=== PATIENT | female | born 1980 | race Hispanic/Latino ===

== ENCOUNTER 2017-06-28 14:22 | Inpatient (IN) | payer BC ==
[2017-06-28 15:10] VITALS: BMI 30.9
[2017-06-28] MEDS ORDERED: Sodium Chloride 0.9% 1,000 ML IV STA ×3 (15:18→22:09)
[2017-06-28] MEDS ORDERED: Morphine 2 mg/ml ISec IVP STA (15:21)
[2017-06-28] MEDS ORDERED: Morphine 4 mg/ml ISec IVP STA ×2 (15:23→18:41)
--- NOTE | 2017-06-28 15:56 | ED PDOC ---
Arrival/HPI - General Chief Complaint: Weakness/Neurological Deficit Time Seen by Provider: 06/28/17 15:01 Historian: Patient - History of Present Illness Narrative History of Present Illness (Text): 06/28/17 15:15 A 37 year old female, whose past medical history includes Mosaic Luong's syndrome, anxiety (takes Zoloft), appendectomy, presents to the emergency department complaining of weakness and near syncope prior to arrival. She states she felt she felt like she was going to pass out and then started feeling right lower abdominal pain. The abdominal pain is worsening and localized to the right lower and mid pelvic area. Some nausea and vomiting. No diarrhea. No vaginal bleeding or discharge. No urinary symptoms. She also noticed that she had a rash all over her body. She denied any itchiness. Patient states never having this experience before. Recently she stopped taking her Zoloft without being instructed to stop using it. She's been under a lot of stress so she thought maybe this was because of her life stressors. She notes also experiencing on and off palpitations and shortness of breath. She denies any chest pain, or any other complaints at this time. PMD: [facility] Past Medical History - Provider Review Nursing Documentation Reviewed: Yes - Infectious Disease Hx of Infectious Diseases: None - Cardiac Hx Cardiac Disorders: No - Pulmonary Hx Respiratory Disorders: No - Neurological Hx Neurological Disorder: No - HEENT Hx HEENT Disorder: No - Renal Hx Renal Disorder: No - Endocrine/Metabolic Hx Endocrine Disorders: No - Hematological/Oncological Hx Blood Disorders: No - Integumentary Hx Dermatological Disorder: No - Musculoskeletal/Rheumatological Hx Musculoskeletal Disorders: No - Gastrointestinal Hx Gastrointestinal Disorders: No - Genitourinary/Gynecological Hx Genitourinary Disorders: No - Psychiatric Hx Psychophysiologic Disorder: Yes Hx Anxiety: Yes Hx Post Traumatic Stress Disorder: Yes Hx Substance Use: No Family/Social History - Physician Review Nursing Documentation Reviewed: Yes Family/Social History: No Known Family HX Smoking Status: Never Smoked Hx Alcohol Use: No Hx Substance Use: No Allergies/Home Meds Allergies/Adverse Reactions: Allergies No Known Allergies Allergy (Verified 06/28/17 15:11) Home Medications: Home Meds Medication Instructions Recorded Confirmed Sertraline [Zoloft] 100 mg PO DAILY 06/28/17 06/28/17 Review of Systems - Physician Review All systems were reviewed & negative as marked: Yes - Review of Systems Constitutional: Other (weakness) Eyes: Vision Changes (prior to arrival in ER) Respiratory: SOB Cardiovascular: Palpitations. absent: Chest Pain Gastrointestinal: Abdominal Pain (right lower abdomen), Nausea, Vomiting Genitourinary Female: absent: Dysuria, Vaginal Bleeding Skin: Other (full body redness) Neurological: Other (lightheadedness) Physical Exam Vital Signs Reviewed: Yes Vital Signs Temp Pulse Resp BP Pulse Ox 06/29/17 00:07 98.2 F 80 17 112/81 100 06/28/17 22:15 74 18 112/79 98 06/28/17 20:45 78 17 118/72 100 06/28/17 17:55 77 16 104/73 99 06/28/17 15:11 97.5 F L 06/28/17 14:44 97.2 F L 86 18 116/66 97 Temperature: Afebrile Blood Pressure: Normal Pulse: Regular Respiratory Rate: Normal Appearance: Positive for: Well-Appearing, Non-Toxic, Comfortable Pain Distress: None Mental Status: Positive for: Alert and Oriented X 3 - Systems Exam Head: Present: Atraumatic, Normocephalic Pupils: Present: PERRL Extroacular Muscles: Present: EOMI Conjunctiva: Present: Normal Mouth: Present: Moist Mucous Membranes Neck: Present: Normal Range of Motion Respiratory/Chest: Present: Clear to Auscultation, Good Air Exchange. No: Respiratory Distress, Accessory Muscle Use Cardiovascular: Present: Regular Rate and Rhythm, Normal S1, S2. No: Murmurs Abdomen: Present: Tenderness (RLQ tenderness with guarding), Normal Bowel Sounds , Rebound, Guarding. 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 No: Cervical Motion Tendernes, Odor Back: Present: Normal Inspection. No: CVA Tenderness Upper Extremity: Present: Normal Inspection. No: Cyanosis, Edema Lower Extremity: Present: Normal Inspection. No: Edema Neurological: Present: GCS=15, CN II-XII Intact, Speech Normal Skin: Present: Erythematous (upper torso and face appeared flushed) Psychiatric: Present: Alert, Oriented x 3, Normal Insight, Normal Concentration Medical Decision Making ED Course and Treatment: 06/28/17 15:19 Impression: 37 year old female with near syncope, abdominal pain, n/v, body flushing, and intermittent dizziness/lightheadedness Differential Diagnosis included but are not limited to: Ovarian Torsion vs Hemorrhagic Cyst vs Colitis; Near Syncope r/o Dehydration vs Hypovolemia from Abdominal Pathology vs Cardiac Arrythmia vs Cardiac abnormalities from Mosaic Luong's Syncope Plan: -- EKG -- Abd/Pelvis CT -- Labs -- Venous Blood Gas -- Morphine -- Zofran -- IV Fluids -- Transvaginal Ultrasound -- Urinalysis -- Reassess and disposition Progress Notes: 06/28/2017 17:10 Chest X-ray IMPRESSION: No active disease. Dictator: Kishore Navarro MD 06/28/2017 17:51 Transvaginal Ultrasound FINDINGS: UTERUS: Measures 4 x 4.2 x 6.9 cm. Normal in size and appearance. Midline exophytic fibroid 1.6 x 1.6 x 1.7 cm. Posterior midline fibroid 2 x 2 x 2.1 cm. Submucosal posterior fibroid 7 x 7 x 9 mm. ENDOMETRIUM: Measures 7.0 mm in diameter. No ultrasound findings to suggest gestational sac, fluid, debris, mass or polyp or other pathologic process within the endometrium. CERVIX: No cervical abnormality identified. RIGHT OVARY: Measures 1.6 x 1.5 x 3 cm. No solid mass. Normal flow. LEFT OVARY: Measures 1.8 x 2.7 x 2.8 cm. No solid mass. Normal flow. Dominant follicle/cyst 1.8 x 1.4 x 1.6 cm. Multiple subcentimeter follicles. FREE FLUID: No significant free fluid noted. OTHER FINDINGS: None. IMPRESSION: Myomatous uterus. Three separate and distinct fibroids identified. Simple cyst left adnexa. Additional benign and/or incidental findings described above. Dictator: Kishore Navarro MD 06/28/17 21:52 Upon reevaluation, abdomen has RLQ tender. Body rash has resolved. CT and US results have been reviewed with patient. Case discussed with Dr. Araiza and patient to be admitted for near-syncope and leukocytosis. Antibiotics already given. Consult with Dr. Del Real neuro, Dr. Lipscomb for ID, Dr. Crissy Durant for [employer]GL[employer] ATT[employer], and Dr. Javed for cardiology. 06/28/17 22:16 EKG NSR at 73bpm. Patient had dizziness and lightheadedness at rest. Fluids given and patient improved. - Lab Interpretations Lab Results: 06/28/17 15:50 06/28/17 17:20 Lab Results 06/28/17 20:25: pO2 78 H, VBG pH 7.35, VBG pCO2 45.0, VBG HCO3 24.8, VBG Total CO2 26.2, VBG O2 Sat (Calc) 97.1 H, VBG Base Excess -1.1 L, VBG Potassium 4.1, Sodium 137.0, Chloride 107.0, Glucose 91, Lactate 0.9, FiO2 21.0, Venous Blood Potassium 4.1 06/28/17 17:20: TSH 3rd Generation 2.24 06/28/17 17:20: Sodium 144, Chloride 108 H, Potassium 4.5, Carbon Dioxide 25, Anion Gap 15, BUN 8, Creatinine 0.7, Est GFR ( Amer) > 60, Est GFR (Non- Af Amer) > 60, Random Glucose 88, Calcium 8.9, Magnesium 1.4 L, Total Bilirubin 0.4, AST 20, ALT 25, Alkaline Phosphatase 72, Lactate Dehydrogenase 355, Total Creatine Kinase 30 L, Troponin I 0.02, Total Protein 7.4, Albumin 4.0, Globulin 3.4, Albumin/Globulin Ratio 1.2, Lipase 31 06/28/17 16:24: Urine Color Dark yellow, Urine Appearance Slight-cloudy, Urine pH 6.0, Ur Specific [place] >= 1.030, Urine Protein >=300 H, Urine Glucose (UA) Negative, Urine Ketones 15 H, Urine Blood Negative, Urine Nitrate Negative, Urine Bilirubin Small H, Urine Urobilinogen 0.2, Ur Leukocyte Esterase Negative , Urine RBC 0 - 2, Urine WBC 0 - 2, Ur Epithelial Cells 4 - 5, Urine Bacteria Small, Hyaline Casts 0 - 2 06/28/17 15:50: pO2 109 H, VBG pH 7.36, VBG pCO2 47.0, VBG HCO3 26.6, VBG Total CO2 28.0, VBG O2 Sat (Calc) 99.1 H, VBG Base Excess 0.6, VBG Potassium 7.0 H*, Sodium 134.0, Chloride 104.0, Glucose 120 H, Lactate 2.2 H, FiO2 21.0, Venous Blood Potassium 7.0 H* 06/28/17 15:50: PT 12.7 H, INR 1.11 H, APTT 25.9 06/28/17 15:50: WBC 19.3 H, RBC 4.93, Hgb 13.6, Hct 40.5, MCV 82.2, MCH 27.6, MCHC 33.6, RDW 14.3, Plt Count 402, MPV 10.2, Gran % 84.3 H, Lymph % (Auto) 9.7 L, [place] % (Auto) 5.0, Eos % (Auto) 0.9 L, Baso % (Auto) 0.1, Gran # 16.24 H, Lymph # (Auto) 1.9, [place] # (Auto) 1.0 H, Eos # (Auto) 0.2, Baso # (Auto) 0.02 I have reviewed the lab results: Yes - RAD Interpretation Radiology Orders: 06/28/17 15:19 TRANSVAGINAL [US] Stat 06/28/17 16:32 CXR [CHEST PORTABLE] [RAD] Stat 06/28/17 18:11 ABD & PELVIS IV CONTRAST ONLY [CT] Stat - Medication Orders Current Medication Orders: Acetaminophen (Tylenol 325mg Tab) 650 mg PO Q4H PRN PRN Reason: Fever >100.5 F Discontinued Medications Sodium Chloride (Sodium Chloride 0.9%) 1,000 mls @ 1,000 mls/hr IV .Q1H STA Stop: 06/28/17 16:17 Last Admin: 06/28/17 16:10 Dose: 1,000 mls/hr eMAR Start Stop Document 06/28/17 16:10 MS (Rec: 06/28/17 16:10 MS [id number]) Intravenous Solution Start Date 06/28/17 Start Time 16:10 End Date 06/28/17 End time 17:10 Total Infusion Time 60 Sodium Chloride (Sodium Chloride 0.9%) 1,000 mls @ 999 mls/hr IV .Q1H1M STA Stop: 06/28/17 18:53 Last Admin: 06/28/17 18:28 Dose: 999 mls/hr eMAR Start Stop Document 06/28/17 18:28 MS (Rec: 06/28/17 18:28 MS [id number]) Intravenous Solution Start Date 06/28/17 Start Time 17:53 End Date 06/28/17 End time 18:53 Total Infusion Time 60 Piperacillin Sod/Tazobactam Sod (Zosyn 4.5 Gm In Ns 100ml) 4.5 gm in 100 mls @ 200 mls/hr IVPB STAT STA PRN Reason: Protocol Stop: 06/28/17 18:50 Last Admin: 06/28/17 18:40 Dose: 200 mls/hr eMAR Start Stop Document 06/28/17 18:40 MS (Rec: 06/28/17 18:41 MS [id number]) Intravenous Solution Start Date 06/28/17 Start Time 18:41 End Date 06/28/17 End time 19:11 Total Infusion Time 30 Sodium Chloride (Sodium Chloride 0.9%) 1,000 mls @ 999 mls/hr IV .Q1H1M STA Stop: 06/28/17 23:09 Last Admin: 06/28/17 22:09 Dose: 999 mls/hr eMAR Start Stop Document 06/28/17 22:09 IT (Rec: 06/28/17 22:24 IT [id number]) Intravenous Solution Start Date 06/28/17 Start Time 22:24 Morphine Sulfate (Morphine) 2 mg IVP STAT STA Stop: 06/28/17 15:24 Last Admin: 06/28/17 16:05 Dose: 2 mg MAR Pain Assessment Document 06/28/17 16:05 MS (Rec: 06/28/17 16:10 MS [id number]) Pain Reassessment Is this a pain reassessment? No Sleep Is patient sleeping during reassessment? No Presence of Pain Presence of Pain Yes Pain Scale Used Pain Scale Used Numeric Location Pain Location Body Site Abdomen Description Description Constant Intensity of Pain at present 7 IVP Administration Document 06/28/17 16:05 MS (Rec: 06/28/17 16:10 MS [id number]) Charges for Administration # of IVP Administrations 1 Re-Assess: JAMES Pain Assessment Document 06/28/17 17:05 GC (Rec: 06/29/17 00:49 GC [id number]) Pain Reassessment Is this a pain reassessment? Yes Sleep Is patient sleeping during reassessment? Yes Morphine Sulfate (Morphine) 4 mg IVP STAT STA Stop: 06/28/17 18:42 Last Admin: 06/28/17 19:17 Dose: 4 mg MAR Pain Assessment Document 06/28/17 19:17 IT (Rec: 06/28/17 19:18 IT [id number]) Pain Reassessment Is this a pain reassessment? No Sleep Is patient sleeping during reassessment? No Presence of Pain Presence of Pain Yes Pain Scale Used Pain Scale Used Numeric Location Pain Location Body Site Abdomen Description Description Constant Intensity of Pain at present 8 IVP Administration Document 06/28/17 19:17 IT (Rec: 06/28/17 19:18 IT [id number]) Charges for Administration # of IVP Administrations 1 Re-Assess: MAR Pain Assessment Document 06/28/17 20:17 GC (Rec: 06/29/17 00:49 GC [id number]) Pain Reassessment Is this a pain reassessment? Yes Sleep Is patient sleeping during reassessment? Yes Ondansetron HCl (Zofran Inj) 4 mg IVP STAT STA Stop: 06/28/17 15:19 Last Admin: 06/28/17 16:04 Dose: 4 mg IVP Administration Document 06/28/17 16:04 MS (Rec: 06/28/17 16:04 MS [id number]) Charges for Administration # of IVP Administrations 1 - Scribe Statement The provider has reviewed the documentation as recorded by the Scribe Abisai Trevino Provider Scribe Attestation: All medical record entries made by the Scribe were at my direction and personally dictated by me. I have reviewed the chart and agree that the record accurately reflects my personal performance of the history, physical exam, medical decision making, and the department course for this patient. I have also personally directed, reviewed, and agree with the discharge instructions and disposition. Disposition/Present on Arrival - Present on Arrival Any Indicators Present on Arrival: No History of DVT/PE: No History of Uncontrolled Diabetes: No Urinary Catheter: No History of Decub. Ulcer: No History Surgical Site Infection Following: None - Disposition Have Diagnosis and Disposition been Completed?: Yes Diagnosis: Near syncope, Abdominal pain, Leukocytosis Disposition: HOSPITALIZED Disposition Time: 21:29 Patient Plan: Admission Condition: GUARDED
[2017-06-28 16:08] LABS: BASO # 0.02 K/mm3 (0.0-2.0); BASO % 0.1 % (0.0-3.0); EOS # 0.2 (0.0-0.7); EOS % 0.9 % (1.5-5.0); GRAN # 16.24 (1.4-6.5); GRAN % 84.3 % (50.0-68.0); HEMOGLOBIN 13.6 g/dL (12.0-16.0); LYMPH # 1.9 (1.2-3.4); LYMPH % 9.7 % (22.0-35.0); MEAN CELL VOLUME 82.2 fl (80.0-105.0); MEAN CORPUSCULAR HEMOGLOBIN 27.6 pg (25.0-35.0); MEAN CORPUSCULAR HGB CONC 33.6 g/dl (31.0-37.0); MEAN PLATELET VOLUME 10.2 fl (7.0-11.0); RBC 4.93 10^6/uL (3.5-6.1); RED CELL DISTRIBUTION WIDTH 14.3 % (11.5-14.5); VENOUS BLOOD GAS BASE EXCESS 0.6 mmol/L (0.0-2.0); VENOUS BLOOD GAS PO2 109 mm/Hg (30-55); VENOUS BLOOD PH 7.36 (7.32-7.43); WHITE BLOOD COUNT 19.3 10^3/ul (4.5-11.0)
[2017-06-28 16:15] LABS: INR 1.11 (0.93-1.08); PARTIAL THROMBOPLASTIN TIME 25.9 Seconds (25.1-36.5); PROTHROMBIN TIME 12.7 SECONDS (9.4-12.5)
[2017-06-28 16:36] LABS: URINE BILIRUBIN SMALL (NEGATIVE); URINE BLOOD NEGATIVE (NEGATIVE); URINE GLUCOSE (UA) NEGATIVE (NEGATIVE); URINE LEUKOCYTE ESTERASE NEGATIVE Leu/uL (NEGATIVE); URINE PROTEIN >=300 mg/dL (<30 mg/dL); URINE UROBILINOGEN 0.2 E.U./dL (<1 E.U./dL)
[2017-06-28 16:37] LABS: URINE APPEARANCE SLIGHT-CLOUDY (CLEAR); URINE COLOR DARK YELLOW (YELLOW)
[2017-06-28 16:42] LABS: URINE BACTERIA SMALL (NEG); URINE HYALINE CAST 0 - 2 /hpf; URINE RBC 0 - 2 /hpf (0-2); URINE WBC 0 - 2 /hpf (0-6)
--- NOTE | 2017-06-28 17:12 | RAD ---
HISTORY: Syncope. Abdominal pain, vomiting and nausea. COMPARISON: No prior. FINDINGS: LUNGS: No active pulmonary disease. PLEURA: No significant pleural effusion identified, no pneumothorax apparent. CARDIOVASCULAR: Normal. OSSEOUS STRUCTURES: No significant abnormalities. VISUALIZED UPPER ABDOMEN: Normal. OTHER FINDINGS: None. IMPRESSION: No active disease.
[2017-06-28 17:42] LABS: ALB/GLOB RATIO 1.2 (1.1-1.8); ALT/SGPT 25 U/L (7-56); AST/SGOT 20 U/L (14-36); BLOOD UREA NITROGEN 8 mg/dL (7-21); CALCIUM 8.9 mg/dL (8.4-10.5); GFR AFRICAN-AMERICAN > 60; GFR NON-AFRICAN AMERICAN > 60; LIPASE 31 U/L (23-300)
[2017-06-28 17:52] LABS: TROPONIN I 0.02 ng/mL
--- NOTE | 2017-06-28 17:52 | US ---
HISTORY: Right lower quadrant abdominal pain. Menstrual status: LMP 06/13/2017. Regular cycles. COMPARISON: None available. TECHNIQUE: Transvaginal only. Real -time technique with 2D, duplex and color Doppler FINDINGS: UTERUS: Measures 4 x 4.2 x 6.9 cm. Normal in size and appearance. Midline exophytic fibroid 1.6 x 1.6 x 1.7 cm. Posterior midline fibroid 2 x 2 x 2.1 cm. Submucosal posterior fibroid 7 x 7 x 9 mm. ENDOMETRIUM: Measures 7.0 mm in diameter. No ultrasound findings to suggest gestational sac, fluid, debris, mass or polyp or other pathologic process within the endometrium. CERVIX: No cervical abnormality identified. RIGHT OVARY: Measures 1.6 x 1.5 x 3 cm. No solid mass. Normal flow. LEFT OVARY: Measures 1.8 x 2.7 x 2.8 cm. No solid mass. Normal flow. Dominant follicle/cyst 1.8 x 1.4 x 1.6 cm. Multiple subcentimeter follicles. FREE FLUID: No significant free fluid noted. OTHER FINDINGS: None. IMPRESSION: Myomatous uterus. Three separate and distinct fibroids identified. Simple cyst left adnexa. Additional benign and/or incidental findings described above.
[2017-06-28] MEDS ORDERED: Piperacill/Tazo 4.5gm in NS 4.5 GM/100 ML BAG IVPB STA (18:21)
[2017-06-28] MEDS ORDERED: Iohexol 350 MG/100 ML VIAL ONE (18:41)
[2017-06-28 20:38] LABS: VENOUS BLOOD GAS BASE EXCESS -1.1 mmol/L (0.0-2.0); VENOUS BLOOD GAS PO2 78 mm/Hg (30-55); VENOUS BLOOD PH 7.35 (7.32-7.43)
--- NOTE | 2017-06-28 20:44 | CT ---
EXAM: CT Abdomen and Pelvis With Intravenous Contrast EXAM DATE/TIME: 06/28/2017 6:11 PM CLINICAL HISTORY: The patient age is 37 years old and is female; Pain and signs and symptoms; Nausea and vomiting; Abdominal pain; Localized; Lower; Additional info: Abd pain Facility exam id and description: Ct abdpelciv abd pelvis iv contrast only TECHNIQUE: Axial computed tomography images of the abdomen and pelvis with intravenous contrast. All CT scans at this facility use one or more dose reduction techniques, viz.: automated exposure control; ma/kV adjustment per patient size (including targeted exams where dose is matched to indication; i.e. head); or iterative reconstruction technique. Coronal and sagittal reformatted images were created and reviewed. CONTRAST: 100 mL of OMNI 350 administered intravenously. COMPARISON: US - TRANSVAGINAL 2017-06-28 16:26 FINDINGS: Lung bases: Dependent atelectatic change is identified at the lung bases posteriorly. ABDOMEN: Liver: No mass. Gallbladder and bile ducts: No calcified stones. No ductal dilation. Pancreas: Normal contour, without acute peripancreatic stranding. Spleen: No splenomegaly. Adrenals: No mass. Kidneys and ureters: No hydronephrosis. No solid mass. Stomach and bowel: A few surgical clips are identified adjacent to the cecum. No obstruction. Evaluation of bowel is limited by the absence of oral contrast. PELVIS: Appendix: The appendix is not visualized. Bladder: No mass. Reproductive: Multiple uterine fibroids are identified. One of the larger fibroid is intramural in position within the posterior wall of the uterus measuring 2.0 x 1.8 x 2.2 cm. There is a hypodense probable left ovarian cyst measuring 1.8 x 1.6 cm. ABDOMEN and PELVIS: Intraperitoneal space: No free air. Bones/joints: No acute fracture. Soft tissues: There is minimal herniation of fat within the umbilicus. Vasculature: No abdominal aortic aneurysm. Lymph nodes: Enlarged iliac chain lymph nodes are identified bilaterally. On the left side, this measures 1.2 x 1.0 cm. These lymph nodes are nonspecific as to etiology. There is no significant retroperitoneal lymphadenopathy. IMPRESSION: 1. Multiple uterine fibroids are identified. 2. There is a hypodense probable left ovarian cyst measuring 1.8 x 1.6 cm. 3. Enlarged iliac chain lymph nodes are identified bilaterally, nonspecific as to etiology. 4. Incidental/non-acute findings are described above.
--- NOTE | 2017-06-29 07:54 | CP.PCM.CON ---
History of Present Illness - History of Present Illness History of Present Illness: PGY2 Neuro Consult Note for Dr. Del Real Reason for consult: near syncope 37yo female PMHx Luong's syndrome presents to the ED the day earlier for a near syncopal episode. Patient reports she has been going through some life stressors and was crying all day and in the evening she felt a tingling sensation throughout her body and was sweating. She states she felt like she might have been having a panic attack. Patient also reported abdominal pain which she believes is associated with her having taken Claritin- she states every time she has a cramping lower abdominal pain she knows she has to have a BM and it improves after. She denied0 any constipation/diarrhea. Patient was having this abdominal pain R> L at the time of her near syncopal episode. She had one episode of nonbloody nonbilious emesis. She also noted she was flushed and felt like her body was red but denied any pruritus or scaling of her skin. She denied any headache, dizziness, chest pain, palpitations, SOB, cough, vaginal bleeding, vaginal discharge, pain/swelling in her legs bilaterally. She reports she feels much better this AM and is eager to be discharged home. 12 point ROS obtained and negative, except as per HPI. 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 Review of Systems - Review of Systems All systems: reviewed and no additional remarkable complaints except Review of Systems: as per HPI Past Patient History - Infectious Disease Hx of Infectious Diseases: None - Past Social History Smoking Status: Never Smoked - CARDIAC Hx Cardiac Disorders: No - PULMONARY Hx Respiratory Disorders: No - NEUROLOGICAL Hx Neurological Disorder: No - HEENT Hx HEENT Problems: No - RENAL Hx Chronic Kidney Disease: No - ENDOCRINE/METABOLIC Hx Endocrine Disorders: No - HEMATOLOGICAL/ONCOLOGICAL Hx Blood Disorders: No - INTEGUMENTARY Hx Dermatological Problems: No - MUSCULOSKELETAL/RHEUMATOLOGICAL Hx Musculoskeletal Disorders: No - GASTROINTESTINAL Hx Gastrointestinal Disorders: No - GENITOURINARY/GYNECOLOGICAL Hx Genitourinary Disorders: No - PSYCHIATRIC Hx Psychophysiologic Disorder: Yes Hx Anxiety: Yes Hx Post Traumatic Stress Disorder: Yes Hx Substance Use: No - SURGICAL HISTORY Hx Surgeries: No Meds Allergies/Adverse Reactions: Allergies Allergy/AdvReac Type Severity Reaction Status Date / Time No Known Allergies Allergy Verified 06/28/17 15:11 - Medications Medications: Current Medications Acetaminophen (Tylenol 325mg Tab) 650 mg PO Q4H PRN PRN Reason: Fever >100.5 F Famotidine (Pepcid) 40 mg PO HS ERICK Hydromorphone HCl (Dilaudid) 0.5 mg IVP Q4H PRN PRN Reason: Pain, Mild (1-3) Ceftriaxone Sodium (Rocephin 1 Gram Ivpb) 1 gm in 100 mls @ 100 mls/hr IVPB DAILY ERICK PRN Reason: Protocol Sodium Chloride (Sodium Chloride 0.9%) 1,000 mls @ 100 mls/hr IV .Q10H ERICK Ondansetron HCl (Zofran Inj) 4 mg IVP Q6 PRN PRN Reason: Nausea/Vomiting Physical Exam - Constitutional Appears: Non-toxic, No Acute Distress - Head Exam Head Exam: ATRAUMATIC, NORMAL INSPECTION, NORMOCEPHALIC - Eye Exam Eye Exam: EOMI, Normal appearance, PERRL. absent: Conjunctival injection, Scleral icterus Pupil Exam: NORMAL ACCOMODATION - ENT Exam ENT Exam: Mucous Membranes Moist - Neck Exam Neck exam: Positive for: Full Rom, Normal Inspection. Negative for: Lymphadenopathy - Respiratory Exam Respiratory Exam: Clear to Auscultation Bilateral, NORMAL BREATHING PATTERN. absent: Accessory Muscle Use, Rales, Rhonchi, Wheezes - Cardiovascular Exam Cardiovascular Exam: REGULAR RHYTHM, +S1, +S2. absent: Bradycardia, Tachycardia - GI/Abdominal Exam GI & Abdominal Exam: Normal Bowel Sounds, Soft, Tenderness (b/l lowe abdomen R > L) - Rectal Exam Rectal Exam: Deferred - Extremities Exam Extremities exam: Positive for: normal capillary refill, normal inspection, pedal pulses present. Negative for: pedal edema - Back Exam Back exam: NORMAL INSPECTION. absent: rash noted - Neurological Exam Neurological exam: Alert, CN II-XII Intact, Oriented x3 - Psychiatric Exam Psychiatric exam: Normal Affect, Normal Mood - Skin Skin Exam: Dry, Intact, Normal Color, Warm Results - Vital Signs Recent Vital Signs: Last Vital Signs Temp 97.6 F 06/29/17 00:27 Pulse 83 06/29/17 06:00 Resp 18 06/29/17 00:27 BP 102/47 L 06/29/17 00:27 Pulse Ox 100 06/29/17 00:07 - Labs Result Diagrams: 06/28/17 15:50 06/28/17 17:20 Assessment & Plan - Assessment and Plan (Free Text) Assessment: 37yo female PMHx Luong's syndrome presents to the ED the day earlier for a near syncopal episode. Plan: -In light of clinical picture and history, patient likely had vasovagal response -carotid u/s reviewed and unremarkable -continue current management as per medical team Neurology will sign off at this time. Please reconsult as necessary. Discussed with Dr. Gt Malave PGY2
[2017-06-29] MEDS: Sodium Chloride 0.9% 1,000 ML IV SCH (09:15)
[2017-06-29] MEDS: cefTRIAXone 1 gm 1 GM/100 ML BAG IVPB SCH (09:35)
--- NOTE | 2017-06-29 10:12 | CARD ---
APPROVED REPORT EKG Measurement Heart [id number] [place] [id number] <Conclusion> Normal sinus rhythm with sinus arrhythmia Possible Left atrial enlargement RVCD NSSTW changes
--- NOTE | 2017-06-29 10:26 | CARD ---
APPROVED REPORT EKG Measurement Heart [id number] <Conclusion> Normal sinus rhythm RVCD NSSTW changes No change
[2017-06-29] MEDS: Magnesium Oxide 400 mg Tab UD PO SCH ×2 (11:28→17:43)
--- NOTE | 2017-06-29 12:35 | US ---
PROCEDURE: Bilateral carotid artery duplex ultrasound HISTORY: Carotid stenosis syncope PHYSICIAN(S): Sandoval Carlos MD. TECHNIQUE: Duplex sonography and color-flow Doppler were used to evaluate the carotid bifurcations and limited segments of the vertebral arteries bilaterally. FINDINGS: There is mild intimal- medial thickening noted at the carotid bifurcations bilaterally. The peak systolic velocity in the proximal right internal carotid artery is 93 cm/sec. This corresponds to a 0-19 percent proximal right ICA stenosis. Normal systolic velocities are noted in the proximal right external carotid artery. There is antegrade flow in the right vertebral artery. The peak systolic velocity in the proximal left internal carotid artery is 95 cm/sec. This corresponds to a 0-19 percent proximal left ICA stenosis. Normal systolic velocities are noted in the proximal left external carotid artery. There is antegrade flow in the left vertebral artery. IMPRESSION: 1. Bilateral 0-19 percent proximal ICA stenoses. 2. Antegrade flow in both vertebral arteries.
--- NOTE | 2017-06-29 12:52 | CP.PCM.CON ---
History of Present Illness - History of Present Illness History of Present Illness: 37 year old female with PMH of mosaic richards's syndrome, anxiety disorder, S/P appendectomy, obesity with BMI 33 came in to [facility] [place] complaining of almost fainting after she had been having nausea and vomiting for about 2 days associated with right sided abdominal pain. She denies diarrhea, no dysuria, no vaginal discharge, no fever or chills, no headache or dizziness, no SOB, no cough or colds, no sore throat. She also developed flushing which disappeared when she got to the ED. CT scan of the abdomen and pelvis was taken which is showing uterine fibroids and a left ovarian cyst. She is also noted to have leukocytosis and Infectious diseases consult is requested to further evaluate and manage. Review of Systems - Review of Systems All systems: reviewed and no additional remarkable complaints except (as per HPI ) Past Patient History - Infectious Disease Hx of Infectious Diseases: None - Past Social History Smoking Status: Never Smoked - CARDIAC Hx Cardiac Disorders: No - PULMONARY Hx Respiratory Disorders: No - NEUROLOGICAL Hx Neurological Disorder: No - HEENT Hx HEENT Problems: No - RENAL Hx Chronic Kidney Disease: No - ENDOCRINE/METABOLIC Hx Endocrine Disorders: No - HEMATOLOGICAL/ONCOLOGICAL Hx Blood Disorders: No - INTEGUMENTARY Hx Dermatological Problems: No - MUSCULOSKELETAL/RHEUMATOLOGICAL Hx Musculoskeletal Disorders: No - GASTROINTESTINAL Hx Gastrointestinal Disorders: No - GENITOURINARY/GYNECOLOGICAL Hx Genitourinary Disorders: No - PSYCHIATRIC Hx Psychophysiologic Disorder: Yes Hx Anxiety: Yes Hx Post Traumatic Stress Disorder: Yes Hx Substance Use: No - SURGICAL HISTORY Hx Surgeries: No Meds Allergies/Adverse Reactions: Allergies Allergy/AdvReac Type Severity Reaction Status Date / Time No Known Allergies Allergy Verified 06/28/17 15:11 - Medications Medications: Current Medications Acetaminophen (Tylenol 325mg Tab) 650 mg PO Q4H PRN PRN Reason: Fever >100.5 F Physical Exam - Constitutional Appears: Non-toxic - Head Exam Head Exam: NORMAL INSPECTION - ENT Exam ENT Exam: Mucous Membranes Moist - Respiratory Exam Respiratory Exam: absent: Rales - Cardiovascular Exam Cardiovascular Exam: +S1, +S2 - GI/Abdominal Exam GI & Abdominal Exam: Soft, Tenderness (on the right lower quadrant). absent: Distended, Firm, Guarding, Rebound, Rigid Results - Vital Signs Recent Vital Signs: Last Vital Signs Temp 97.6 F 06/29/17 00:27 Pulse 83 06/29/17 06:00 Resp 18 06/29/17 00:27 BP 102/47 L 06/29/17 00:27 Pulse Ox 100 06/29/17 00:07 - Labs Result Diagrams: 06/28/17 15:50 06/28/17 17:20 Assessment & Plan - Assessment and Plan (Free Text) Plan: Assessment Systemic inflammatory response syndrome, R/O sepsis from acute gastroenteritis, R/O due to uterine fibroids left ovarian cyst, unknown clinical significance, R/O PID iliac lymphadenopathy, etiology to be determined mosaic richards's syndrome anxiety disorder S/P appendectomy obesity with BMI 33 Plan Started the patient on Rocephin, Flagyl, Doxycycline pending blood, urine cx, urine GC, RPR, HIV test follow up Assembly 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
--- NOTE | 2017-06-29 14:05 | MRI ---
PROCEDURE: Magnetic Resonance Angiography Brain HISTORY: near syncope COMPARISON: None available. TECHNIQUE: 3D time of flight MR angiography of the intracranial arteries was performed. Rotating maximum intensity projection images were generated. FINDINGS: INTERNAL CAROTID ARTERIES: Unremarkable. The skull base, petrous, cavernous and supraclinoid segments are bilaterally widely patient. ANTERIOR CEREBRAL ARTERIES: Unremarkable. A1 and A2 segments are widely patent. Smaller distal branches unremarkable, as visualized. MIDDLE CEREBRAL ARTERIES: Unremarkable. M1 and M2 segments are widely patent. Perisylvian branches grossly symmetric. POSTERIOR CIRCULATION: Basilar Artery: Unremarkable. Distal Vertebral Arteries: Unremarkable. Posterior Cerebral Arteries: Unremarkable. Posterior Inferior Cerebellar Arteries: Unremarkable. ANEURYSM/ VASCULAR MALFORMATIONS: None. OTHER FINDINGS: None. IMPRESSION: Unremarkable MR angiography of the brain.
[2017-06-29] MEDS: metroNIDAZOLE IV 500 mg/100 ml 500 MG/100 ML BAG IVPB SCH ×2 (14:40→21:33)
[2017-06-29 16:57] LABS: RAPID PLASMA REAGIN NONREACTIVE (NONREACTIVE)
[2017-06-29] MEDS: HYDROmorphone 0.5 mg/0.5 ml ISec IVP PRN ×2 (19:12→23:50)
--- NOTE | 2017-06-29 22:14 | CARD ---
APPROVED REPORT EXAM: Two-dimensional and M-mode echocardiogram with Doppler and color Doppler. INDICATION NEAR SYNCOPE/LV FX 2D DIMENSIONS Left Atrium (2D)2.9 (1.6-4.0cm)IVSd0.9 (0.7-1.1cm) LVDd3.8 (3.9-5.9cm)PWd0.8 (0.7-1.1cm) LVDs2.5 (2.5-4.0cm)FS (%) 34.4 % LVEF (%)64.1 (>50%) M-Mode DIMENSIONS Aortic Root2.40 (2.2-3.7cm)Aortic Cusp Exc.1.60 (1.5-2.0cm) Aortic Valve AoV Peak Efllwzlx709.0cm/Jeri Peak GR.7mmHg Mitral Valve MV E Irxuigpe512.0cm/sMV A Fscsxjvf39.2cm/sE/A ratio1.5 TDI E/Lateral E'0.0E/Medial E'0.0 Tricuspid Valve TR Peak Tlixztoi271xk/sRAP [id number] Peak Gr.20mmHg [id number] LEFT VENTRICLE The left ventricle is normal size. There is normal left ventricular wall thickness. The left ventricular function is normal.EF-65% There is normal LV segmental wall motion. The left ventricular diastolic function is normal. No left ventricle thrombus noted on this study. There is no ventricular septal defect visualized. There is no left ventricular aneurysm. There is no mass noted in the left ventricle. RIGHT VENTRICLE The right ventricle is normal size. There is normal right ventricular wall thickness. The right ventricular systolic function is normal. ATRIA The left atrium size is normal. The right atrium size is normal. The interatrial septum is intact with no evidence for an atrial septal defect. AORTIC VALVE The aortic valve is thickened but opens well. No aortic regurgitation is present. There is no aortic valvular stenosis. There is no aortic valvular vegetation. MITRAL VALVE The mitral valve is thickened but opens well. Mitral regurgitation is trace. There is no mitral valve stenosis. There is no evidence of mitral valve prolapse. TRICUSPID VALVE The tricuspid valve is normal in structure. There is trace to mild tricuspid regurgitation.RVSP_30 mmof hg. There is no tricuspid valve stenosis. There is no tricuspid valve prolapse or vegetation. PULMONIC VALVE The pulmonic valve is borderline thickened. There is trace pulmonic valvular regurgitation. There is no pulmonic valvular stenosis. GREAT VESSELS The aortic root is normal in size. The ascending aorta is normal in size. The pulmonary artery is normal. The IVC is normal in size and collapses >50% with inspiration. PERICARDIAL EFFUSION There is no pleural effusion. There is no pericardial effusion. <Conclusion> Normal chamber Size, EF-60-65. Trace MR, Mild TR- RVSP-30 mmof hg.
--- NOTE | 2017-06-29 22:31 | CON ---
DATE: 06/29/2017 REASON FOR CONSULTATION: Near syncope, cardiac evaluation, history of Luong syndrome. 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 Denies any chest pain, shortness of breath, any palpitation. The patient was referred to [facility] who suggested a stress test and echo, but the patient never got it done, who was yesterday in the usual state of health, went to the bathroom, sit on the toilet bowl. When coming out, she feels sweaty and she feels she is going to pass out. Denies any chest pain. Denies shortness of breath. Denies any palpitations. Denies any prior episode of syncope or near syncope. Denies any prior episode of dyspnea on exertion or chest pain. PAST MEDICAL HISTORY: Significant for anxiety disorder and taking Zoloft for more than 3 years and mosaic Luong syndrome. PAST SURGICAL HISTORY: History significant for appendectomy many years ago and laser cosmetic eye surgery. Also, history of IVF and donated ovum to the sister. SOCIAL HISTORY: Denies any . Denies any history of alcohol abuse. 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 FAMILY HISTORY: Mother has coronary artery disease and MO at age of 70. CURRENT MEDICATION: Zoloft. ALLERGY: NO KNOWN DRUG ALLERGY. REVIEW OF SYSTEMS: As per HPI. PHYSICAL EXAMINATION: VITAL SIGNS: Temperature afebrile, heart rate 74, blood pressure 112/79. HEENT: PERRLA, intact. NECK: Supple. No carotid bruit. No thyromegaly. CHEST: Clear to auscultation. HEART: S1 and S2 regular. ABDOMEN: Soft. EXTREMITIES: Clubbing and cyanosis negative. LABORATORY DATA: Blood workup as follows; WBC 19.2, hemoglobin 13.6, hematocrit 40.5, platelet count 402. Chemistry shows sodium 144, potassium 4.5, chloride 108, carbon dioxide 25, anion gap of 15, BUN 8, creatinine 0.8. TSH 2.24. IMPRESSION: Near syncope, rule out vasovagal, elevated WBC, rule out sepsis, rule out any structural heart disease. EKG shows normal sinus rhythm. No acute ST-T changes noted. I will suggest the patient for functional assessment such as stress test. The patient wanted to get it done with the [facility] as outpatient with [facility] warpman, KAYLA. So for now, we will just do the, 1. Orthostatic. 2. Echocardiogram and if remain stable, discontinue telemetry. Continue further cardiac workup as outpatient. Once the patient is stable from neurological point of view, she can be discharged home. We will also get lipid profile and TSH and we will put some magnesium oxide because magnesium is low. Thank you, Dr. Araiza, for providing us the opportunity in taking care of the patient, Kathleen Mcdonnell. Shazia Sher MD
[2017-06-30] MEDS: Sodium Chloride 0.9% 1,000 ML IV SCH ×3 (02:40→14:38)
[2017-06-30] MEDS: metroNIDAZOLE IV 500 mg/100 ml 500 MG/100 ML BAG IVPB SCH ×3 (05:22→21:25)
[2017-06-30 07:34] LABS: BASO # 0.03 K/mm3 (0.0-2.0); BASO % 0.4 % (0.0-3.0); EOS # 0.5 (0.0-0.7); EOS % 6.5 % (1.5-5.0); GRAN # 3.79 (1.4-6.5); GRAN % 52.9 % (50.0-68.0); HEMOGLOBIN 10.1 g/dL (12.0-16.0); LYMPH # 2.4 (1.2-3.4); LYMPH % 33.7 % (22.0-35.0); MEAN CELL VOLUME 83.7 fl (80.0-105.0); MEAN CORPUSCULAR HGB CONC 32.3 g/dl (31.0-37.0); MONO # 0.5 (0.1-0.6); MONO % 6.5 % (1.0-6.0); RBC 3.74 10^6/uL (3.5-6.1); WHITE BLOOD COUNT 7.2 10^3/ul (4.5-11.0)
[2017-06-30 07:52] LABS: IRON 29 ug/dL (45-180)
[2017-06-30 07:55] LABS: ALB/GLOB RATIO 1.1 (1.1-1.8); ALBUMIN 3.2 g/dL (3.0-4.8); ALT/SGPT 28 U/L (7-56); AST/SGOT 15 U/L (14-36); BLOOD UREA NITROGEN 8 mg/dL (7-21); CALCIUM 8.4 mg/dL (8.4-10.5); GFR AFRICAN-AMERICAN > 60; GFR NON-AFRICAN AMERICAN > 60; HDL CHOLESTEROL 46 mg/dL (29-60)
[2017-06-30 08:02] LABS: % IRON SATURATION 9 % (20-55); TOTAL IRON BINDING CAPACITY 322 ug/dL (265-497)
[2017-06-30 08:03] LABS: LDL CHOLESTEROL 55 mg/dL (0-129)
[2017-06-30] MEDS: cefTRIAXone 1 gm 1 GM/100 ML BAG IVPB SCH (10:05)
[2017-06-30] MEDS: Magnesium Oxide 400 mg Tab UD PO SCH ×2 (10:06→17:38)
--- NOTE | 2017-06-30 12:32 | CP.PCM.PN ---
Subjective - Date & Time of Evaluation Date of Evaluation: 06/30/17 Time of Evaluation: 11:45 - Subjective Subjective: Still with abdominal pain but feeling better, no nausea, no diarrhea. Has clear non-malodorous vaginal discharge. Objective - Vital Signs/Intake and Output Vital Signs (last 24 hours): Temp Pulse Resp BP Pulse Ox 97.6 F 67 18 121/80 97 06/30/17 08:26 06/30/17 08:26 06/30/17 08:26 06/30/17 08:26 06/30/17 08:26 Intake and Output: 06/30/17 06/30/17 06:59 18:59 Intake Total 780 Balance 780 - Medications Medications: Current Medications Acetaminophen (Tylenol 325mg Tab) 650 mg PO Q4H PRN PRN Reason: Fever >100.5 F Doxycycline Hyclate (Doryx) 100 mg PO Q12 [facility] PRN Reason: Protocol Last Admin: 06/30/17 10:06 Dose: 100 mg Famotidine (Pepcid) 40 mg PO HS [facility] Last Admin: 06/29/17 21:33 Dose: 40 mg Hydromorphone HCl (Dilaudid) 0.5 mg IVP Q4H PRN PRN Reason: Pain, Mild (1-3) Last Admin: 06/29/17 23:50 Dose: 0.5 mg Ceftriaxone Sodium (Rocephin 1 Gram Ivpb) 1 gm in 100 mls @ 100 mls/hr IVPB DAILY [facility] PRN Reason: Protocol Last Admin: 06/30/17 10:05 Dose: 100 mls/hr Sodium Chloride (Sodium Chloride 0.9%) 1,000 mls @ 100 mls/hr IV .Q10H [facility] Last Admin: 06/30/17 07:54 Dose: Not Given Metronidazole (Flagyl) 500 mg in 100 mls @ 100 mls/hr IVPB Q8 [facility] PRN Reason: Protocol Last Admin: 06/30/17 05:22 Dose: 100 mls/hr Magnesium Oxide (Mag-Ox) 400 mg PO BID [facility] Stop: 06/30/17 23:59 Last Admin: 06/30/17 10:06 Dose: 400 mg Ondansetron HCl (Zofran Inj) 4 mg IVP Q6 PRN PRN Reason: Nausea/Vomiting Last Admin: 06/29/17 15:31 Dose: 4 mg Sertraline HCl (Zoloft) 100 mg PO DAILY [facility] Last Admin: 06/30/17 10:06 Dose: 100 mg - Labs Labs: 06/30/17 07:00 06/30/17 07:00 PT 12.7 SECONDS (9.4-12.5) H 06/28/17 15:50 INR 1.11 (0.93-1.08) H 06/28/17 15:50 APTT 25.9 Seconds (25.1-36.5) 06/28/17 15:50 - Constitutional Appears: Non-toxic - Head Exam Head Exam: NORMAL INSPECTION - ENT Exam ENT Exam: Mucous Membranes Moist - Neck Exam Neck Exam: absent: Lymphadenopathy, Meningismus - Respiratory Exam Respiratory Exam: Decreased Breath Sounds - Cardiovascular Exam Cardiovascular Exam: +S1, +S2 - GI/Abdominal Exam GI & Abdominal Exam: Soft, Tenderness (mild, lower quadrants). absent: Distended, Firm, Guarding, Rigid, Rebound Assessment and Plan - Assessment and Plan (Free Text) Plan: Assessment Systemic inflammatory response syndrome, R/O sepsis from acute gastroenteritis, R/O due to uterine fibroids left ovarian cyst, unknown clinical significance, R/O PID iliac lymphadenopathy, etiology to be determined mosaic richards's syndrome anxiety disorder S/P appendectomy obesity with BMI 33 Plan continue Rocephin, Flagyl, Doxycycline day 2; follow up urine cx, urine GC, RPR , HIV test; blood cx are negative follow up [employer] evaluation regarding ovarian cyst and regarding the iliac lymphadenopathy will continue to monitor clinically
--- NOTE | 2017-06-30 12:33 | HP ---
DATE OF EXAM: 06/29/2017 The patient was seen and examined on the bedside on 06/29/2017. CHIEF COMPLAINT: Weakness, neurological deficit. HISTORY OF PRESENT ILLNESS: Ms. Kathleen Mcdonnell is a 37-year-old female with past medical history of mosaic Luong syndrome and anxiety and takes Zoloft, appendectomy, came to the Emergency Room/Department complaining of weakness and near syncope. Prior to arrival, she stated that she felt that she is going to pass out and then, started feeling right lower abdominal pain. Pain is worsened and localized in the right lower and mid pelvic areas. Has nausea and vomiting. No diarrhea. No vaginal bleeding or discharge. No urinary symptoms. She also noticed that she had a rash all over the body. She denies any itchiness. Patient states never having this experience before. Recently, she stopped taking her Zoloft without being instructed to stop using it. She has been under a lot of stress and so she thought may be this was because of her life structures and stopping Zoloft. She noticed she also experienced on and off palpitation and shortness of breath, but denies any chest pain. No fever, no chills. PAST MEDICAL HISTORY: Mosaic Luong syndrome, anxiety, posttraumatic stress disorder. FAMILY HISTORY: Father and mother, noncontributory. HABITS: Never smoked. No drug. No ethanol. ALLERGIES: PATIENT IS NOT ALLERGIC WITH ANY MEDICATIONS. HOME MEDICATIONS: Sertraline, Zoloft 100 mg p.o. every daily. REVIEW OF SYSTEMS: I saw patient in her room, sitting on the chair, feeling better. Still a little bit weak. Sometimes, shortness of breath. Sometimes, palpitation, but no chest pain. Abdominal pain noted in the right lower quadrant. No nausea or vomiting. No dysuria or vaginal bleeding. Sometimes complaining about lightheadedness, but no fever, no chills. PHYSICAL EXAMINATION: VITAL SIGNS: Temperature 98.2, pulse 80, respiratory rate 17, blood pressure 112/81, pulse oximetry 100. HEENT: Head, normocephalic and atraumatic. Eyes, PERRLA. Extraocular muscles intact. Conjunctivae clear. Nose patent. Mucous membrane moist. NECK: Supple. No carotid bruit. No JVD or thyromegaly. CHEST: Bilaterally symmetrical. HEART: S1, S2 positive. LUNGS: Clear to auscultation. ABDOMEN: Soft, bowel sounds present. No organomegaly. EXTREMITIES: No edema, no cyanosis. NEUROLOGIC: The patient is awake, alert. Moving all four extremities. No focal deficits. LABORATORY DATA: White blood cell is 19.3, hemoglobin 13.6, hematocrit 40.5, platelets 402. Sodium 144, potassium 4.5, BUN 8, creatinine 0.7, glucose 88 and chloride 108. ASSESSMENT AND PLAN: Ms. Kathleen Mcdonnell is a 37-year-old female with leukocytosis and hyperchloremia, came with near syncope, abdominal pain, leukocytosis, history of mosaic Luong syndrome, anxiety and palpitation. Because of leukocytosis, we called consult with ID, Dr. Jeff Spivey. According to him, the patient has systemic inflammatory response syndrome, rule out sepsis from acute gastroenteritis, rule out uterine fibroid, left ovarian cyst, unknown significance; rule out pelvic inflammatory disease; iliac lymphadenopathy, etiology to be determined, status post appendectomy, obesity, starting the patient on Rocephin and doxycycline depending on the culture of blood and urine. Urine GC, RPR, HIV test ordered. Waiting for gynecological evaluation of her ovarian cyst. Carotid artery ultrasound done, noted by me. Had MRA done, noted by me. Seen by voice network administrator, Dr. Sher for palpitation, near syncope, looks like vasovagal. Rule out structural heart disease, in mosaic Luong syndrome. EKG shows normal sinus rhythm, no acute ST-T changes. Cardiology suggested stress test. We will do echo cardiography. We will repeat labs. Seen by the neurologist. Waiting for [employer] F[employer]OR[employer] input. We will follow up. Mary Araiza MD GISELLA
[2017-06-30 12:44] LABS: FOLATE 15.6 ng/mL
[2017-06-30 15:12] VITALS: BP 127/78; PULSE 71; RESP 20; TEMP 98.4; O2SAT 100
--- NOTE | 2017-06-30 17:25 | PN ---
DATE: 06/30/2017 LOCATION: The patient in room 573, bed 1. REASON FOR CONSULTATION: Near syncope, cardiac evaluation, history of Luong syndrome. The patient was admitted with feeling of sweaty and felt now she is going to pass out. The patient denies any chest pain. The patient was found to have mosaic Luong syndrome. The patient has seen [facility] and echo and stress test was suggested, but the patient never did that. The patient denies any chest pain, shortness of breath or palpitation. The patient is lying flat in bed without any cardiac symptom at the present moment. PHYSICAL EXAMINATION: VITAL SIGNS: Blood pressure 121/80, respiration 18, pulse 67, temperature 97.6. HEENT: Head is normocephalic. Eyes: Pupils normal. Conjunctivae normal. Nose and throat normal. NECK: JVP low. Carotids equal. THORAX: AP diameter normal. LUNGS: Clear. CARDIOVASCULAR: S1 and S2. ABDOMEN: Soft. No tenderness. No organomegaly. Bowel sounds are normal. EXTREMITIES: No clubbing, no cyanosis. LABORATORY DATA: 01:58 WBC 7.2, hemoglobin 10.1, hematocrit 31.3, platelet 281. Sodium 143, potassium 4, BUN 8, creatinine 0.6. AST and ALT normal. Total protein and albumin normal. The patient had echocardiogram on 06/29/2017, which showed normal chamber size, ejection fraction 60-65%, trace MR, mild TR, RVSP 30 mmHg. DIAGNOSES: Near syncope, possibility of vasovagal etiology, Luong syndrome. PLAN: The patient is on metronidazole 500 mg IV every 8 hours, magnesium 400 b.i.d., famotidine 40 at bedtime, ceftriaxone 1 g IV daily, Zoloft 100 mg daily. Discussed with the patient. She says she will do stress test as outpatient. Also when the patient is neurologically stable. If the patient will come, we will do stress test as outpatient. So far, clinically cardiac status is stable. Shazia Javed MD
--- NOTE | 2017-06-30 23:59 | CP.PCM.PN ---
Subjective - Date & Time of Evaluation Date of Evaluation: 06/30/17 Time of Evaluation: 23:50 - Subjective Subjective: S: Nurse called to write a prescription for Vantin and Flagyl as ordered by . Patient is being discharged home. Prescription was written and given to patient with instruction. She has no acute problem now. O: Last Vital Signs 3 Temp 98.4 F 06/30/17 15:11 Pulse 71 06/30/17 15:11 Resp 20 06/30/17 15:11 BP 127/78 06/30/17 15:11 Pulse Ox 100 06/30/17 15:11 Awake, alert, ambulating. LUNGS: Normal breathing pattern. A:Encounter for prescription. P:Flagyl 500 mg PO Q8H x 5 days. Vantin 200 mg PO BIC x 5 days. Objective - Vital Signs/Intake and Output Vital Signs (last 24 hours): Temp Pulse Resp BP Pulse Ox 98.4 F 71 20 127/78 100 06/30/17 15:11 06/30/17 15:11 06/30/17 15:11 06/30/17 15:11 06/30/17 15:11 Intake and Output: 06/30/17 07/01/17 18:59 06:59 Intake Total 1020 620 Balance 1020 620 - Labs Labs: 06/30/17 07:00 06/30/17 07:00 PT 12.7 SECONDS (9.4-12.5) H 06/28/17 15:50 INR 1.11 (0.93-1.08) H 06/28/17 15:50 APTT 25.9 Seconds (25.1-36.5) 06/28/17 15:50
[2017-07-01] MEDS ORDERED: Cefpodoxime (Vantin) 200 mg Tab PO SCH (10:00)
== END 2017-06-30 22:36 | disposition home or self-care (01) | DRG 312 ==
LOC: ED 14:22 → ERH 21:29 → 2RNO 06-29 00:13 → 5RSO 06-29 14:30
PROVIDERS: ADMIT Internal Medicine; ATTEND Internal Medicine
DX: R55 Syncope and collapse (principal); R65.10 Systemic inflammatory response syndrome (SIRS) of non-infectious origin without acute organ dysfunction; Q96.9 Turner's syndrome, unspecified; K52.9 Noninfective gastroenteritis and colitis, unspecified; N83.202 Unspecified ovarian cyst, left side; D25.9 Leiomyoma of uterus, unspecified; D72.829 Elevated white blood cell count, unspecified; E66.9 Obesity, unspecified; Z68.33 Body mass index [BMI] 33.0-33.9, adult; E87.8 Other disorders of electrolyte and fluid balance, not elsewhere classified; F43.10 Post-traumatic stress disorder, unspecified; N89.8 Other specified noninflammatory disorders of vagina; Z79.899 Other long term (current) drug therapy; Z82.49 Family history of ischemic heart disease and other diseases of the circulatory system; Z90.49 Acquired absence of other specified parts of digestive tract; R21 Rash and other nonspecific skin eruption; R40.2412 Glasgow coma scale score 13-15, at arrival to emergency department